=== PATIENT | female | born 1985 | race Caucasian/White ===

== ENCOUNTER 2017-10-28 01:37 | Emergency (ER) | payer OTHER ==
[~2017-10-28] VITALS: Ht 162.6 cm; Wt 117.5 kg
--- NOTE | 2017-10-28 01:52 | ED GENERAL ADULT ---
History of Present Illness General Chief Complaint: General Adult Stated Complaint: "RT SIDE TOOTH PAIN CANT HEAR OUT OF RT EAR" Source: patient Exam Limitations: no limitations Vital Signs & Intake/Output Vital Signs & Intake/Output Vital Signs Date Time Temp Pulse Resp B/P B/P Pulse O2 O2 Flow FiO2 Mean Ox Delivery Rate 10/28 0156 98.1 76 16 146/97 97 Room Air Room Air Allergies Coded Allergies: No Known Allergies (10/28/17) Reconcile Medications Meloxicam (Mobic) 15 MG TABLET 1 TAB PO DAILY PRN PAIN Penicillin V Potassium 500 MG TABLET 1 TAB PO BID DENTAL CARIES Triage Nurses Notes Reviewed? yes Onset: Gradual Duration: since August Timing: recent history HPI: 32 year old female presents to the Emergency Department with tooth pain and right ear pain since August. Now this evening she has fullness in the right ear. She can't hear anything out of the right ear. She says her right upper molar also hurts. No fever. Past History Travel History Traveled to [place] past 21 day No Medical History Any Pertinent Medical History? see below for history Neurological: NONE EENT: NONE Cardiovascular: NONE Respiratory: NONE Gastrointestinal: NONE Hepatic: NONE Renal: NONE Musculoskeletal: NONE Psychiatric: NONE Endocrine: NONE Blood Disorders: NONE Cancer(s): NONE BIT SANDER/Reproductive: NONE Surgical History Surgical History: shoulder surgery Family History Hx Contributory? No Review of Systems Review of Systems Constitutional: Reports: see HPI. EENTM: Reports: see HPI, ear pain (right), tooth pain. Respiratory: Reports: no symptoms. Cardiovascular: Reports: no symptoms. GI: Reports: no symptoms. Genitourinary: Reports: no symptoms. Musculoskeletal: Reports: no symptoms. Skin: Reports: no symptoms. Neurological/Psychological: Reports: no symptoms. Hematologic/Endocrine: Reports: no symptoms. Immunologic/Allergic: Reports: no symptoms. Physical Exam Physical Exam General Appearance: well developed/nourished, alert, awake, moderate distress Head: atraumatic, normal appearance Eyes: Bilateral: normal appearance, PERRL, EOMI. Ears, Nose, Throat: right ear serumim impaction, right sided dental pain Neck: full range of motion Respiratory: normal breath sounds Cardiovascular: regular rate/rhythm Peripheral Pulses: 4+ radial (R), 4+ radial (L) Gastrointestinal: soft Back: normal range of motion Extremities: normal range of motion Neurologic/Psych: awake, alert, oriented x 3 Skin: intact, normal color, warm/dry Core Measures ACS in differential dx? No CVA/TIA Diagnosis: No Sepsis Present: No Sepsis Focused Exam Completed? No Progress Differential Diagnoses I considered the following diagnoses in my evaluation of the patient: [Dental abscess, Byron's angina, cerumen impaction, otitis externa Procedure With warm saline and peroxide and a plastic Angiocath jet irrigation was performed to the right ear. A large cerumen bolus was returned and the patient had complete relief of symptoms. Postprocedure the tympanic membrane was examined and was intact.] Plan of Care: Current Medications Sig/Ran Start time Last Medication Dose Stop Time Status Admin Ketorolac 60 MG ONCE ONE 10/28 214 UNVr 10/28 Tromethamine 10/28 (Toradol) Penicillin V 500 MG ONCE ONE 10/28 214 CANr Potassium 10/29 215 (Pen V K 250MG. Tablet) Initial ED EKG: none Departure Departure Disposition: STILL A PATIENT Condition: Stable Clinical Impression Primary Impression: Cerumen impaction Referrals: Unknown (PCP/Family) Departure Forms: Customer Survey General Discharge Information Prescriptions: Current Visit Scripts Penicillin V Potassium 1 TAB PO BID #20 TAB Meloxicam (Mobic) 1 TAB PO DAILY PRN PAIN #10 TAB Critical Care Note Critical Care Note Critical Care Time: non-applicable
[2017-10-28 01:56] VITALS: BP 146/97
[2017-10-28] MEDS ORDERED: PENICILLIN V P500 M1 PO (02:35)
[2017-10-28] MEDS ORDERED: MOBIC15 M1 PO (02:36)
== END 2017-10-28 02:39 ==
LOC: ERH 01:37
DX: H61.21 Impacted cerumen, right ear (principal)
CPT/HCPCS: 96372; J1885